=== PATIENT | female | born 1965 | race African-American/Black ===

== ENCOUNTER 2018-11-18 09:19 | Emergency (ER) | payer MEDICAID ==
[~2018-11-18] VITALS: Ht 185.4 cm; Wt 97.5 kg
[~2018-11-18 09:19] MED LIST: AMLO5TAB13 PO; ASP81EC PO; ATOR20TA50 PO; ERGO1CAP6 PO; METF-370 PO; OMEP20CA74 PO
[2018-11-18 09:27] VITALS: BP 188/94
[2018-11-18] MEDS ORDERED: KETOROLAC TROMETH 60MG/2ML VIAL IM ONE (11:30)
== END 2018-11-18 12:08 | disposition home or self-care (01) ==
LOC: ER 09:19
DX: M48.02 Spinal stenosis, cervical region (principal); M54.12 Radiculopathy, cervical region; E11.9 Type 2 diabetes mellitus without complications; I10 Essential (primary) hypertension; F17.210 Nicotine dependence, cigarettes, uncomplicated
CPT/HCPCS: 72125; 96372; 99284; J1885

== ENCOUNTER 2019-07-16 08:59 | Emergency (ER) | payer MEDICAID ==
[~2019-07-16] VITALS: Ht 175.3 cm; Wt 102.1 kg
[~2019-07-16 08:59] MED LIST changes: -AMLO5TAB13 PO; +AMLO5TAB15 PO
[2019-07-16 09:13] VITALS: BP 172/84
[2019-07-16 10:06] LABS: Urine Bacteria FEW /hpf (None Seen); Urine Blood 1+ /uL (Negative); Urine Mucus FEW (None Seen); Urine Specific Gravity 1.012 (1.001-1.035); Urine WBC 319 /hpf (0 - 5)
== END 2019-07-16 10:21 | disposition home or self-care (01) ==
LOC: ER 08:59
DX: S43.422A Sprain of left rotator cuff capsule, initial encounter (principal); N39.0 Urinary tract infection, site not specified; E11.9 Type 2 diabetes mellitus without complications; I10 Essential (primary) hypertension; F17.210 Nicotine dependence, cigarettes, uncomplicated; Z79.899 Other long term (current) drug therapy; X58.XXXA Exposure to other specified factors, initial encounter; Y93.89 Activity, other specified; Y92.89 Other specified places as the place of occurrence of the external cause; Y99.8 Other external cause status
CPT/HCPCS: 81001; 82962